=== PATIENT | female | born 1990 | race Caucasian/White ===

== ENCOUNTER 2024-08-19 11:03 | Emergency (ER) | payer BC, SELFPAY ==
[2024-08-19 11:04] VITALS: BP 154/89
[2024-08-19 11:44] LABS: % Basophils 0.7 % (0-2); % Eosinophils 3.5 % (0-6); % Immature Granulocytes 0.3 % (0-0.5); % Lymphocytes 20.5 % (20.5-51.1); % Monocytes 5.3 % (1.7-9.3); % Neutrophils 69.7 % (42.2-75.2); Absolute Basophils 0.1 10^3/uL (0-0.2); Absolute Eosinophils 0.2 10^3/uL (0-0.7); Absolute Lymphocytes 1.4 10^3/uL (1.2-3.4); Absolute Monocytes 0.4 10^3/uL (0.1-0.6); Absolute Neutrophils 4.7 10^3/uL (1.4-6.5); Hematocrit 35.8 % (37.0-47.0); Hemoglobin 12.5 g/dL (12.0-16.0); Mean Corp Hgb Conc. 34.9 g/dL (33.0-37.0); Mean Corpuscular Hgb 29.8 pg (27.0-31.0); Mean Corpuscular Volume 85.4 fL (81.0-99.0); Mean Platelet Volume 8.7 fL (7.4-10.4); Nucleated Red Blood Cells % 0 %; Platelet Count 552 10^3/uL (130-400); Red Blood Cell Count 4.19 10^6/uL (4.20-5.40); Red Cell Dist. Width 13.5 % (11.5-14.5); White Blood Cell Count 6.8 10^3/uL (4.8-10.8)
[2024-08-19 11:56] LABS: COVID-19 Antigen Negative (Negative)
[2024-08-19 11:58] LABS: HCG, Serum Qualitative Screen Negative
[2024-08-19 12:03] LABS: ALT (SGPT) 29 U/L (0-35); AST (SGOT) 29 U/L (14-36); Albumin 4.9 g/dl (3.5-5.0); Alkaline Phosphatase 42 U/L (38-126); Blood Urea Nitrogen 13 mg/dl (7-17); Calcium 10.6 mg/dl (8.4-10.2); Carbon Dioxide 23 mmol/L (22-30); Chloride 101 mmol/L (98-107); Glucose 108 mg/dl (70-99); Potassium 4.1 mmol/L (3.5-5.1); Sodium 140 mmol/L (135-145); Total Bilirubin 0.5 mg/dl (0.2-1.3); Total Protein 7.8 g/dl (6.3-8.2); eGFR > 60.00
--- NOTE | 2024-08-19 12:08 | ED.GENMED ---
History of Present Illness
General
Chief Complaint: Cold/Flu/URI Symptoms
Source: patient
Time Seen by Provider: 08/19/24 11:59
History of Present Illness
History of Present Illness:
34yoF with a history of endometriosis presenting for evaluation of a cough. Cough has been ongoing for about 3 weeks. She had a telehealth appointment about 2 weeks ago and was started on azithromycin. Cough was initially productive of green
sputum but is now productive of clear sputum since finishing the antibiotic. Her cough continues and she is now having sinus and ear pressure. She decided to go to urgent care to get a different antibiotic. While in urgent care, she was told that
her vital signs were abnormal and she sent to the ED for evaluation. Heart rate was in the 130s and oxygen saturation was reportedly 93%. When asked if she has shortness of breath, patient states 'a little.' She had a 1-2 second episode of chest
pain in the waiting room but has no chest pain currently. She denies any history of asthma or tobacco use. Of note, patient worse as a highway design engineer.
Phy Exam
General Physical Exam
General Presentation: well appearing and no apparent distress
General age: appears stated age
General Skin: warm and dry
General Habitus: normal
General Mental: alert
General Hydration: appears well hydrated
ENT Exam
ENT Exam: pharynx normal and normocephalic
Cardiovascular Exam
Cardiovascular Exam: no murmur and tachycardia
Pulmonary Exam
Pulmonary Exam: no respiratory distress, generalized wheezing and other (Wheezing throughout with rhonchi noted. Speaking in full sentences without difficulty. )
Sung Coma Scale
Eye Opening: Spontaneous
Verbal Response: Oriented
Motor Response: Obeys Commands
GCS Total Score: 15
Skin Exam
Skin Exam: normal color and warm/dry
Psychiatric Exam
Psychiatric Exam: normal mood/affect
Course
Orders/Labs/Results
Orders:
Orders
08/19/24 11:07
Electrocardiogram (*1) Urgent
Reason for Study: Tachycardia
EKG- Treatment ONCE
Test Result ONCE
CXR2 [CR Chest - 2 Views ] Urgent
Comment:
Reason For Exam: cough
08/19/24 11:22
COVID-19 Antigen Urgent
Source: Nasal Swab
Influenza A+B Rapid Molecular Urgent
BROOKS Source: Nasal Swab
Specimen Description:
08/19/24 11:29
Complete Blood Count/With Diff Urgent
Comprehensive Metabolic Panel Urgent
HCG, Serum Qualitative Screen Urgent
08/19/24 12:07
Ipratropium/Albuterol Sulfate [Duoneb] 3 ml INH R NOW STA
08/19/24 12:18
D-Dimer Urgent
Troponin I Urgent
08/19/24 12:30
Respiratory Syncytial Virus Urgent
BROOKS Source: Nasal Swab
Specimen Description:
Date Specimen was Collected: 08/19/24
Time Specimen was Collected: 12:21
08/19/24 12:56
CT Chest Pe Study Urgent
Comment:
Reason For Exam: Tachycardia, cough, elevated D-dimer
08/19/24 14:18
Albuterol [ProAIR HFA INHALER] 2 puff INH R NOW STA
08/19/24 14:19
Dexamethasone [Decadron] 10 mg PO NOW STA
Nursing to Place Non Medication Order As Directed
Physician Order: Please give nebulizer machine at discharge
Above order entered?: Yes
Abnormal Lab Results
08/19/24 08/19/24
11:29 12:18
RBC 4.19 L 10^6/uL
(4.20-5.40)
Hct 35.8 L %
(37.0-47.0)
Plt Count 552 H 10^3/uL
(130-400)
D-Dimer 0.54 H ug/mlFEU
(0.00-0.50)
Glucose 108 H mg/dl
(70-99)
Calcium 10.6 H mg/dl
(8.4-10.2)
08/19/24 11:29
08/19/24 11:29
Vital Signs
Initial and Last Documented VS:
Initial Vital Signs
Temp Pulse Resp BP Pulse Ox
97.5 F 132 18 154/89 97
08/19/24 11:04 08/19/24 11:04 08/19/24 11:04 08/19/24 11:04 08/19/24 11:04
Last Documented Vital Signs
Temp Pulse Resp BP Pulse Ox
97.5 F 109 19 154/89 96
08/19/24 11:04 08/19/24 14:34 08/19/24 14:34 08/19/24 11:04 08/19/24 13:00
MDM/Problems Addressed
Differential Diagnosis Includes:
34yoF here with a cough x 3 weeks. Finished azithromycin 2 weeks ago and symptoms persist. Went to urgent care today and sent to the ED due to tachycardia. Heart rate 132 in triage. Oxygen saturation 97%. BP stable. She is well appearing in no
distress. Rhonchi and wheezing noted on lung exam. Respirations non-labored. Differential diagnosis includes but is not limited to: pneumonia, bronchitis, viral illness, PE
Initial ED plan: CBC, CMP, COVID/flu and EKG obtained in triage. COVID/flu negative. EKG shows sinus tachycardia with nonspecific ST changes. Labs overall unremarkable. Will check troponin, D-dimer, RSV swab, and CXR. DuoNeb ordered for wheezing.
*EKG
Interpreted by ED Provider?: Yes
EKG Intrepretation Date: 08/19/24
Heart Rate: 125
Rate: tachycardiac
Rhythm: sinus
Linch: normal axis
Interval: normal interval
QRS Pattern: normal QRS
Ischemia: non-specific ST changes
*Critical Care Note
Total Time (30-74mins, 75-104mins- exclusive of procedures): Not Applicable
Update Note
Update Note:
Troponin WNL. CXR is clear and RSV negative. D-dimer elevated and CTA chest subsequently ordered. CT is negative for pulmonary embolism but does show a LLL consolidation consistent with pneumonia. Oxygen saturation 96% on recheck and HR improved to
109. Wheezing improved after neb treatment. No indication for hospitalization. Dose of Decadron given. Nebulizer machine provided to patient and prescription given for albuterol. She was started on a course of Augmentin. Advised close f/u with PCP
and ED return precautions discussed. She expressed understanding and is agreeable to plan. She was discharged in stable condition.
ED Attending Note
-
Portions of this chart may have been created with voice recognition software.� Occasional wrong word or��sound alike� substitutions may have occurred due to the inherent limitations of voice recognition software.
Discharge Plan
Departure
Patient Disposition: Home (Routine Discharge)
Date of Disposition: 08/19/24
Time of Disposition: 14:19
Patient with high blood pressure during this ER visit?: Yes
Discharge Problem:
Left lower lobe pneumonia
Instructions: Pneumonia, Adult (DC)
Prescriptions:
New
amoxicillin-pot clavulanate 875-125 mg tablet
1 tab PO BID Qty: 14 0RF
albuterol sulfate 2.5 mg/0.5 mL solution for nebulization
2.5 mg inhalation Q6H PRN (Reason: shortness of breath or wheezing) Qty: 30 0RF
albuterol sulfate [Ventolin HFA] 90 mcg/actuation HFA aerosol inhaler
1 inh inhalation Q6H PRN (Reason: shortness of breath or wheezing) Qty: 1 0RF
Referrals:
Krystin Gonzalez MD [Family Provider] -
Stand Alone Forms: Return to Work
Activity Restrictions/Additional Instructions:
Take antibiotics as prescribed. Use nebulizer treatments as needed for wheezing. Drink plenty of fluids and rest.
Please follow-up with your family doctor next week. Return to the ER with any new or worsening symptoms.
Interventions
Interventions:
*Risk Screen - Suicide Last Done: 08/19/24 11:04
*General Assessment Last Done: 08/19/24 11:04
*Neglect/Abuse Screening Last Done: 08/19/24 11:04
ED- Fall Risk Assessment Last Done: 08/19/24 12:15
*ED COVID-19 Vaccine History Last Done: 08/19/24 11:04
*Nursing Disposition Last Done: 08/19/24 14:36
ED- Pulmonary Assessment Last Done: 08/19/24 12:15
Discharge Date and Time
Discharge Date/Time: 08/19/24 14:36
Print Language: [place]
[2024-08-19] MEDS: DUONEB 3 ML INH (12:31)
[2024-08-19 12:51] LABS: D-Dimer 0.54 ug/mlFEU (0.00-0.50)
[2024-08-19 12:56] LABS: Troponin I < 0.012 ng/ml
[2024-08-19] MEDS: DECADRON 10 MG PO (14:25)
== END 2024-08-19 14:36 | disposition home or self-care (01) ==
LOC: EMR 11:03
PROVIDERS: Physician Assistant; EMERGENCY PHYSICIAN Emergency Medicine; FAMILY PHYSICIAN Emergency Medicine
DX: J18.9 Pneumonia, unspecified organism (principal); Z11.52 Encounter for screening for COVID-19; R03.0 Elevated blood-pressure reading, without diagnosis of hypertension
CPT/HCPCS: 99285; 94640; 71046; 71275; 80053; 84484; 84703; 85025; 85379; 87502; 87807; 87811; 93005; Q9967